=== PATIENT | female | born 1945 | race Caucasian/White ===

== ENCOUNTER 2021-01-30 17:58 | Inpatient (IN) ==
[2021-01-30] MEDS ORDERED: PANTOPRAZOLE 40 MG VIAL IV STA (18:38)
[2021-01-30] MEDS ORDERED: ONDANSETRON 4 MG/2 ML VIAL IV STA (18:38)
[2021-01-30] MEDS ORDERED: ONDANSETRON 4 MG/2 ML VIAL IV PRN (19:42)
[2021-01-30] MEDS ORDERED: hydrALAZINE 20 MG/1 ML VIAL IV PRN (19:42)
[2021-01-30] MEDS ORDERED: GLUCAGON 1 MG VIAL IM PRN ×2 (19:42)
[2021-01-30] MEDS ORDERED: DEXTROSE 50% 25 GM/50 ML VIAL IV PRN ×2 (19:42)
[2021-01-30] MEDS ORDERED: ENOXAPARIN 40 MG/0.4 ML SYRINGE SUBCUT SCH (20:00)
[2021-01-30 20:03] LABS: Basophils % 0.2 % (0.0-0.8); Eosinophils # 0.1 10*3/uL (0.0-0.87); Eosinophils % 1.8 % (0.00-10.9); Hematocrit 35.6 VOL% (35.7-47.0); Hemoglobin 11.3 GM/DL (12.0-16.0); Immature Granulocytes % 0.3 %; Immature Granulocytes Absolute 0.02 #; Lymphocytes # 0.7 10*3/uL (1.4-4.0); Lymphocytes % 12.4 % (21.3-54.2); Mean Corpuscular HGB Conc 31.7 GM/DL (32-36); Mean Corpuscular Volume 89.4 FL (87-102); Monocytes % 9.7 % (1.7-12.7); Neutrophils % 75.6 % (38.7-73.9); Platelet Count 152 T/CUMM (130-400); Red Blood Count 3.98 MC/CUMM (3.8-5.5); Red Cell Distribution Width 30.3 % (9.3-17.3)
[2021-01-30 20:19] LABS: Alanine Aminotransferase 27 U/L (13-56); Alkaline Phosphatase 153 U/L (45-117); Amylase 22 U/L (25-115); Aspartate Amino Transferase 59 U/L (0-37); Blood Urea Nitrogen 39 MG/DL (7-18); Calcium 9.9 MG/DL (8.5-10.1); Carbon Dioxide 25 MMOL/L (21-32); Estimated Glom Filtration Rate 24 ML/MIN; Glucose 118 MG/DL (74-106); Osmolality,Calculated 288.4 MOS/KG (273-304); Sodium 140 MMOL/L (136-145); Total Protein 6.7 G/DL (6.4-8.2)
[2021-01-30 20:30] LABS: Albumin 2.9 G/DL (3.4-5.0); Bilirubin,Direct 1.38 MG/DL (0.0-0.20); Bilirubin,Indirect 1.4 MG/DL (0.0-1.0); Bilirubin,Total 2.8 MG/DL (0.20-1.00); Lactic Acid 6.4 MMOL/L (0.4-2.0); Total Protein 6.4 G/DL (6.4-8.2)
[2021-01-30] MEDS ORDERED: VANCOMYCIN INJ 1,000 MG in SODIUM CHLORIDE 0.9% 250 ML IV STA (20:32)
[2021-01-30 20:44] LABS: Bilirubin,Urine Negative (Negative); Blood, Urine Small mg/dL (Negative); Glucose,Urine (UA) Negative (Negative); Hyaline Casts,Urine 18 /LPF (0-3); Ketones,Urine Negative (Negative); Mucus,Urine Occasional /LPF (Occasional); Nitrite,Urine Negative (Negative); Protein,Urine Negative; RBC,Urine 2 /HPF (0-4); Squamous Epithelial Cell,Urine Occasional /HPF (0-10); Urine Appearance CLEAR (Clear); Urine Color Yellow (Yellow); Urine Specific Gravity 1.009 (1.001-1.035); Urine Urobilinogen < 2.0 EU/DL (0.2-1.0)
[2021-01-30] MEDS: SODIUM CHLORIDE 0.45% 1,000 ML IV SCH (21:07)
[2021-01-30 21:25] LABS: Hepatitis B Core IgM Quant 0.12 Index; Hepatitis B Surface Ag Quant < 0.10 Index; Hepatitis B Surface Ag Result Non-Reactive (NonReactive); Hepatitis C Virus Ab Quant < 0.02 Index; Hepatitis C Virus Ab Result Non-Reactive (NonReactive)
[2021-01-30] MEDS: ELTROMBOPAG 25 MG PO SCH (23:42)
[2021-01-31] MEDS: ALBUTEROL/IPRATROPIUM 3 ML NEB RESP TX SCH ×4 (00:49→20:00)
[2021-01-31] MEDS: INSULIN REGULAR 100 UNIT/ML SUBCUT SCH ×5 (01:19→22:35)
[2021-01-31] MEDS: LACTULOSE 20 GM/30 ML UDCUP PO SCH ×5 (01:45→22:33)
[2021-01-31] MEDS: GABAPENTIN 400 MG CAPSULE PO SCH ×2 (01:48→10:33)
[2021-01-31] MEDS: SODIUM CHLORIDE 0.45% 1,000 ML IV SCH (06:03)
[2021-01-31 06:07] LABS: Basophils % 0.2 % (0.0-0.8); Eosinophils # 0.1 10*3/uL (0.0-0.87); Eosinophils % 2.3 % (0.00-10.9); Hematocrit 33.2 VOL% (35.7-47.0); Hemoglobin 10.9 GM/DL (12.0-16.0); Immature Granulocytes % 0.4 %; Immature Granulocytes Absolute 0.02 #; Lymphocytes # 0.7 10*3/uL (1.4-4.0); Mean Corpuscular HGB Conc 32.8 GM/DL (32-36); Mean Corpuscular Volume 88.1 FL (87-102); Monocytes % 9.1 % (1.7-12.7); Red Blood Count 3.77 MC/CUMM (3.8-5.5); Red Cell Distribution Width 29.9 % (9.3-17.3); White Blood Count 4.8 T/CUMM (4-12)
[2021-01-31] MEDS: LEVOTHYROXINE 88 MCG TABLET PO SCH (06:09)
[2021-01-31 06:16] LABS: Platelet Count 79 T/CUMM (130-400)
[2021-01-31 06:19] LABS: Calcium 9.4 MG/DL (8.5-10.1); Hypochromasia 1+; Microcytosis 1+; Osmolality,Calculated 280.8 MOS/KG (273-304); Potassium 3.9 MMOL/L (3.5-5.1); Risk Ratio 8.12; Thyroid Stimulating Hormone 3.18 uIU/ml (0.358-3.74); VLDL Cholesterol 17.2 MG/DL
[2021-01-31 10:30] LABS: INR 1.2; PT Patient Result 13.3 SECS (10.5-12.0)
[2021-01-31] MEDS: CITALOPRAM 20 MG TABLET PO SCH (10:34)
[2021-01-31] MEDS: FUROSEMIDE 20 MG/2 ML VIAL IV SCH ×2 (10:38→17:22)
[2021-01-31] MEDS: PANTOPRAZOLE 40 MG VIAL IV SCH (10:40)
[2021-01-31 12:11] LABS: % Iron Saturation 31.3 % (18-50); Ferritin 107.1 ng/ml (8-252)
[2021-01-31] MEDS: GABAPENTIN 300 MG CAPSULE PO SCH (22:33)
[2021-01-31] MEDS: ELTROMBOPAG 25 MG PO SCH (22:34)
[2021-02-01] MEDS: ALBUTEROL/IPRATROPIUM 3 ML NEB RESP TX SCH ×4 (01:34→19:45)
[2021-02-01] MEDS ORDERED: DEXTROSE 50% 25 GM/50 ML VIAL IV PRN (08:43)
[2021-02-01] MEDS: FUROSEMIDE 20 MG/2 ML VIAL IV SCH ×2 (09:11→17:31)
[2021-02-01] MEDS: PANTOPRAZOLE 40 MG VIAL IV SCH (09:15)
[2021-02-01 09:25] LABS: Calcium 8.8 MG/DL (8.5-10.1); Osmolality,Calculated 282.5 MOS/KG (273-304); Potassium 3.1 MMOL/L (3.5-5.1)
[2021-02-01] MEDS: LACTULOSE 20 GM/30 ML UDCUP PO SCH ×3 (09:36→21:58)
[2021-02-01] MEDS: LEVOTHYROXINE 88 MCG TABLET PO SCH (09:37)
[2021-02-01] MEDS: GABAPENTIN 300 MG CAPSULE PO SCH ×2 (09:37→21:57)
[2021-02-01] MEDS: INSULIN REGULAR 100 UNIT/ML SUBCUT SCH ×4 (09:37→23:00)
[2021-02-01] MEDS: CITALOPRAM 20 MG TABLET PO SCH (09:37)
[2021-02-01] MEDS ORDERED: POTASSIUM CHLORIDE 20 MEQ TABLET PO PRN (13:28)
[2021-02-01 14:01] LABS: Mitochondrial Antibody (M2) <0.1 U
[2021-02-01 14:15] LABS: Antinuclear Ab, S 0.1 U
[2021-02-02] MEDS: ALBUTEROL/IPRATROPIUM 3 ML NEB RESP TX SCH ×2 (00:13→07:35)
[2021-02-02 05:16] LABS: Basophils % 0.3 % (0.0-0.8); Eosinophils # 0.1 10*3/uL (0.0-0.87); Eosinophils % 2.6 % (0.00-10.9); Hematocrit 32.1 VOL% (35.7-47.0); Hemoglobin 10.2 GM/DL (12.0-16.0); Immature Granulocytes % 0.3 %; Immature Granulocytes Absolute 0.01 #; Lymphocytes # 0.5 10*3/uL (1.4-4.0); Lymphocytes % 17.4 % (21.3-54.2); Mean Corpuscular HGB Conc 31.8 GM/DL (32-36); Mean Corpuscular Volume 89.7 FL (87-102); Monocytes % 11.8 % (1.7-12.7); Neutrophils % 67.6 % (38.7-73.9); Red Blood Count 3.58 MC/CUMM (3.8-5.5); Red Cell Distribution Width 28.5 % (9.3-17.3)
[2021-02-02 05:22] LABS: White Blood Count 3.1 T/CUMM (4-12)
[2021-02-02 05:23] LABS: Platelet Count 81 T/CUMM (130-400)
[2021-02-02 05:44] LABS: Albumin 2.4 G/DL (3.4-5.0); Bilirubin,Total 2.3 MG/DL (0.20-1.00); Calcium 8.8 MG/DL (8.5-10.1); Osmolality,Calculated 278.7 MOS/KG (273-304); Potassium 2.9 MMOL/L (3.5-5.1); Total Protein 5.5 G/DL (6.4-8.2)
[2021-02-02 06:04] LABS: Platelet Estimate Decreased
[2021-02-02 06:05] LABS: Anisocytosis 2+; Hypochromasia 1+; Macrocytosis 1+; Target Cells Few
[2021-02-02] MEDS: LEVOTHYROXINE 88 MCG TABLET PO SCH (06:05)
[2021-02-02] MEDS ORDERED: POTASSIUM BICARB EFFERVESCENT 20 MEQ TAB.EFF PO ONE (08:00)
[2021-02-02] MEDS: INSULIN REGULAR 100 UNIT/ML SUBCUT SCH (09:02)
[2021-02-02] MEDS: FUROSEMIDE 20 MG/2 ML VIAL IV SCH (09:26)
[2021-02-02] MEDS: CITALOPRAM 20 MG TABLET PO SCH (09:26)
[2021-02-02] MEDS: GABAPENTIN 300 MG CAPSULE PO SCH (09:26)
[2021-02-02] MEDS: PANTOPRAZOLE 40 MG VIAL IV SCH (09:27)
[2021-02-02] MEDS: LACTULOSE 20 GM/30 ML UDCUP PO SCH (09:47)
[2021-02-02 12:14] VITALS: BP 129/55
[2021-02-02 13:01] LABS: Smooth Muscle Antibody Negative (Negative)
[2021-02-03] MEDS ORDERED: POTASSIUM CHLORIDE 20 MEQ TABLET PO SCH (09:00)
[2021-02-04] MEDS ORDERED: ERGOCALCIFEROL 50,000 UNIT CAPSULE PO SCH (09:00)
== END 2021-02-02 16:50 | disposition swing bed (61) | DRG 441 ==
LOC: N.ED 17:58 → N.EDINP 19:42 → SUATTDRO 19:42 → N.EDINP 21:22 → N.3E 21:52
PROVIDERS: ADMIT Internal Medicine; ATTEND Internal Medicine